=== PATIENT | female | born 1945 | race Caucasian/White ===

== ENCOUNTER → 2017-07-15 | Outpatient (CLI) | payer OTHER ==
[~2017-07-15] MED LIST: ACYC400T PO; AMLO1CAP15 PO; ESCI10TA PO; ESOM40CA PO; RALO60TA PO
== END | disposition home or self-care (01) ==
LOC: RAH 14:01
PROVIDERS: ATTEND Nurse Practitioner Adult Health
DX: Z13.6 Encounter for screening for cardiovascular disorders (principal); K44.9 Diaphragmatic hernia without obstruction or gangrene
CPT/HCPCS: 75571

== ENCOUNTER 2020-07-18 05:52 | Day surgery (SDC) | payer MEDICARE ==
[2020-07-13 14:23] LABS: BASOPHILS % (AUTO) 1.3 % (0.0-5.0); EOSINOPHILS % (AUTO) 0.7 % (0.0-8.0); HEMATOCRIT 34.4 % (36-48); LYMPHOCYTES % (AUTO) 28.1 % (21.0-51.0); MEAN CORPUSCULAR HEMOGLOBIN 30.8 pg (27.0-33.0); MEAN CORPUSCULAR HGB CONC 34.9 g/dL (32.0-36.0); MEAN CORPUSCULAR VOLUME 88.4 fL (79-99); MONOCYTES % (AUTO) 9.7 % (3.0-13.0); PLATELET COUNT (AUTO) 225 K/uL (130-400); RED BLOOD CELL COUNT(AUTO) 3.89 MIL/uL (4.00-5.50); RED CELL DISTRIBUTION WIDTH 12.7 % (11.0-15.5); WHITE BLOOD COUNT (AUTO) 5.6 K/uL (4.8-10.8)
[2020-07-13 14:25] LABS: APPEARANCE,URINE Clear (CLEAR); BILIRUBIN,URINE Negative (NEGATIVE); COLOR,URINE Yellow (YELLOW); GLUCOSE, URINE (UA) Negative (NEGATIVE); KETONES,URINE Negative (NEGATIVE); LEUKOCYTE ESTERASE ,URINE Negative (NEGATIVE); NITRATE,URINE Negative (NEGATIVE); OCCULT BLOOD,URINE Negative (NEGATIVE); PROTEIN,URINE Negative (NEGATIVE)
[2020-07-13 14:33] LABS: CREATININE 0.8 mg/dL (0.5-1.5); POTASSIUM 4.1 mmol/L (3.5-5.1)
[2020-07-13 14:46] LABS: INR 1.05 (0.85-1.15); PROTHROMBIN TIME 11.4 SEC (9.6-11.6)
[2020-07-13 14:48] LABS: PARTIAL THROMBOPLASTIN TIME 29.1 SEC (26.3-35.5)
[2020-07-17 10:23] VITALS: BP 194/82
[2020-07-18] VITALS (12 sets, daily range): BP systolic 123–203; BP diastolic 44–107
[~2020-07-18] VITALS: Ht 160 cm; Wt 63.9 kg
[~2020-07-18 05:52] MED LIST changes: -ACYC400T PO; -AMLO1CAP15 PO; +APIX5TAB PO; +DILT90CA PO; +ESCI-8 PO; -ESOM40CA PO; +HYDR-4153 PO; +IRBE300T18 PO; -RALO60TA PO; +ROSU5TAB12 PO; +SODIUM CHLORIDE 0.9% 500ML 500 ML IV SCH
[2020-07-18] MEDS ORDERED: IOHEXOL 350 MG/ML 100ML INFUS..BTL IV ONE (07:15)
[2020-07-18] MEDS ORDERED: IOHEXOL-350 50ML VIAL IV ONE (07:15)
[2020-07-18] MEDS ORDERED: BIVALIRUDIN 250 MG/VIAL IV ONE (07:15)
[2020-07-18] MEDS ORDERED: FENTANYL CITRATE PF 50 MCG/1 ML 2ML VIAL ONE (07:16)
[2020-07-18] MEDS ORDERED: LIDOCAINE HCL 2% 20ML ONE (07:16)
[2020-07-18] MEDS ORDERED: MIDAZOLAM HCL 1 MG/ML 2ML VIAL ONE (07:16)
[2020-07-18] MEDS ORDERED: NITROGLYCERIN 2 MG/VIAL VIAL IV ONE (07:31)
[2020-07-18] MEDS ORDERED: ISOS30TA92 PO (07:39)
[2020-07-18] MEDS ORDERED: NITROGLYCERIN 4.1 GM SPRAY TL ONE (08:12)
[2020-07-18] MEDS ORDERED: HYDRALAZINE HCL 20 MG/ML VIAL ONE ×2 (08:20→08:30)
[2020-07-18] MEDS ORDERED: HYDRALAZINE HCL 20 MG/ML VIAL IV PRN (08:30)
[2020-07-18] MEDS ORDERED: ACETAMINOPHEN-CODEINE 300/30MG TAB PO PRN (08:30)
[2020-07-18] MEDS ORDERED: GLUCAGON 1MG KIT 1 MG ML IM PRN (08:30)
[2020-07-18] MEDS ORDERED: DEXTROSE 50%-WATER 50 ML DISP.SYRIN IV PRN (08:30)
[2020-07-18] MEDS ORDERED: SODIUM CHLORIDE 0.9% 1000ML 1,000 ML IV SCH (08:30)
[2020-07-18] MEDS ORDERED: NITROGLYCERIN 0.4 MG SL TAB SL PRN (08:30)
[2020-07-18] MEDS ORDERED: AMLODIPINE BESYLATE 5 MG TAB ONE (08:34)
[2020-07-18] MEDS ORDERED: AMLODIPINE BESYLATE 5 MG TAB PO SCH (08:47)
[2020-07-20] MEDS ORDERED: AMLO-257 PO (10:20)
[2020-07-20] MEDS ORDERED: DONE5TAB33 PO (10:23)
[2020-07-21] MEDS ORDERED: NOREPINEPHRINE BITARTRATE 1 MG/1 ML ML IV ONE (08:25)
== END 2020-07-18 14:20 | disposition home or self-care (01) ==
LOC: DAH 05:52
PROVIDERS: ATTEND Internal Medicine Cardiovascular Disease
DX: I25.118 Atherosclerotic heart disease of native coronary artery with other forms of angina pectoris (principal); I35.0 Nonrheumatic aortic (valve) stenosis; R07.9 Chest pain, unspecified; E78.5 Hyperlipidemia, unspecified; I48.0 Paroxysmal atrial fibrillation; I11.0 Hypertensive heart disease with heart failure; I50.32 Chronic diastolic (congestive) heart failure; Z90.710 Acquired absence of both cervix and uterus; Z79.01 Long term (current) use of anticoagulants; Z79.899 Other long term (current) drug therapy
CPT/HCPCS: 36415; 71045; 75710; 80048; 81003; 85025; 85610; 85730; 93005; 93458; 93880; 93970; A4215; A4216; A4222; A4223 ×3; A4606; A4663; C1769 ×2; C1894 ×2; J0360 ×2; J1644; J2250; J3490 ×2; J7030; J7040; Q9965; Q9967 ×2; 96360; 96361; 99156; 99157; J0583; J3010

== ENCOUNTER → 2020-08-11 | Outpatient (CLI) | payer MEDICARE ==
[~2020-08-11] MED LIST changes: +AMLO-257 PO; -DILT90CA PO; +DONE5TAB33 PO; -ESCI10TA PO; +ISOS30TA92 PO; -SODIUM CHLORIDE 0.9% 500ML 500 ML IV SCH
== END | disposition home or self-care (01) ==
LOC: RAH 11:07
PROVIDERS: ATTEND Nurse Practitioner Adult Health
DX: I51.7 Cardiomegaly (principal); J90 Pleural effusion, not elsewhere classified
CPT/HCPCS: 71046

== ENCOUNTER → 2021-01-04 | Outpatient (CLI) | payer MEDICARE ==
[~2021-01-04] MED LIST changes: +GADOTERATE MEGLUMINE 10 MMOL/20 ML VIAL IV ONE
== END | disposition home or self-care (01) ==
LOC: RAH 07:52
PROVIDERS: ATTEND Nurse Practitioner Adult Health
DX: G31.9 Degenerative disease of nervous system, unspecified (principal); M27.40 Unspecified cyst of jaw; I63.9 Cerebral infarction, unspecified
CPT/HCPCS: 70553; A9575